=== PATIENT | male | born 1965 | race Caucasian/White ===

== ENCOUNTER 2017-10-05 14:03 | Observation (INO) | payer SELFPAY ==
--- NOTE | 2017-10-05 14:04 | PDOC ---
History of Present Illness - General History Source: Patient Exam Limitations: No Limitations - History of Present Illness Initial Comments: 10/05/17 15:14 The patient is a 52-year-old male, with a significant past medical history of Type I diabetes, who presents to the ED with chest pain that began today. The patient was at home watching TV when he developed the pain that he describes as tight in sensation with radiation to his back. He decided to report to the ED for further evaluation when his chest pain progressively worsened while he was out grocery shopping. He reports that he has been experiencing shortness of breath for the past few weeks and had a recent stress test done which was found to be abnormal. He has a nuclear test scheduled for tomorrow at [facility]. On exam, the patient states that he feels a little shaky. Pt takes 81 mg aspirin daily. The patient states that his stools have been black for a few days. He reports nausea but no vomiting. He denies any diaphoresis or palpitations. He denies any fever, chills, nausea, vomiting, diarrhea, or abdominal pain. PCP: Dr. Knox Senior Talent Acquisition Specialist: Dr. Friend Polisher Balance Screwhead: Dr. Ananda Strickland <Verena Carson - Last Filed: 10/05/17 16:30> <Dodie Hankins - Last Filed: 10/05/17 16:58> - General Chief Complaint: Chest Pain Stated Complaint: CHEST PAIN Time Seen by Provider: 10/05/17 14:04 Past History <Verena Carson - Last Filed: 10/05/17 16:30> <Dodie Hankins - Last Filed: 10/05/17 16:58> - Past Medical History Allergies/Adverse Reactions: Allergies Allergy/AdvReac Type Severity Reaction Status Date / Time No Known Allergies Allergy Verified 10/05/17 14:05 Home Medications: Ambulatory Orders Aspirin 81 mg PO DAILY 10/05/17 Insulin (Novolog) [Novolog Vial] 0 units SQ ASDIR 10/05/17 Methimazole 5 mg PO DAILY 10/05/17 Pravastatin Sodium 10 mg PO DAILY 10/05/17 Ramipril 5 mg PO DAILY 10/05/17 Review of Systems - Review of Systems Able to Perform ROS?: Yes Comments:: 10/05/17 15:17 GENERAL/CONSTITUTIONAL: (+)Shaking. No fever or chills. No weakness. HEAD, EYES, EARS, NOSE AND THROAT: No change in vision. No ear pain or discharge. No sore throat. CARDIOVASCULAR: (+)Chest pain, shortness of breath. RESPIRATORY: No cough, wheezing, or hemoptysis. GASTROINTESTINAL: (+)nausea. No vomiting, diarrhea or constipation. GENITOURINARY: (+)black stools. No dysuria, frequency, or change in urination. MUSCULOSKELETAL: No joint or muscle swelling or pain. No neck or back pain. SKIN: No rash NEUROLOGIC: No headache, vertigo, loss of consciousness, or change in strength/ sensation. ENDOCRINE: No increased thirst. No abnormal weight change. HEMATOLOGIC/LYMPHATIC: No anemia, easy bleeding, or history of blood clots. ALLERGIC/IMMUNOLOGIC: No hives or skin allergy. <Verena Carson - Last Filed: 10/05/17 16:30> *Physical Exam - Vital Signs Last Vital Signs Temp Pulse Resp BP Pulse Ox 98.2 F 91 H 18 121/81 97 10/05/17 14:04 10/05/17 15:12 10/05/17 15:12 10/05/17 15:12 10/05/17 15:12 - Physical Exam Comments: 10/05/17 15:20 GENERAL: Awake, alert, and fully oriented, in no acute distress HEAD: No signs of trauma EYES: PERRLA, EOMI, sclera anicteric, conjunctiva clear ENT: Auricles normal inspection, hearing grossly normal, nares patent, oropharynx clear without exudates. Moist mucosa NECK: Normal ROM, supple, no lymphadenopathy, JVD, or masses LUNGS: Breath sounds equal, clear to auscultation bilaterally. No wheezes, and no crackles HEART: Regular rate and rhythm, normal S1 and S2, no murmurs, rubs or gallops ABDOMEN: Soft, nontender, normoactive bowel sounds. No guarding, no rebound. No masses EXTREMITIES: Normal range of motion, no edema. No clubbing or cyanosis. No cords, erythema, or tenderness NEUROLOGICAL: Cranial nerves II through XII grossly intact. Normal speech, normal gait SKIN: Warm, Dry, normal turgor, no rashes or lesions noted Rectal Exam: No internal or external hemorrhoids. Light brown stool noted No masses palpated Normal prostate <AlliVerena - Last Filed: 10/05/17 16:30> Heart Score/ECG Review - ECG Intrepretation Comment:: 10/05/17 14:07 sinus at 90, nl axis, nl interval, no acute st/t wave findings <Dodie Hankins - Last Filed: 10/05/17 16:58> ED Treatment Course - LABORATORY CBC & Chemistry Diagram: 10/05/17 14:15 10/05/17 14:15 - ADDITIONAL ORDERS Additional order review: Laboratory Results 10/05/17 10/05/17 10/05/17 14:36 14:31 14:15 Sodium 137 Potassium 4.2 Chloride 107 Carbon Dioxide 22 Anion Gap 8 BUN 22 H Creatinine 1.3 Creat Clearance w eGFR 57.53 POC Glucometer [phone] Random Glucose 186 H Calcium 9.2 Magnesium 1.9 Total Bilirubin 1.3 H AST 23 ALT 21 Alkaline Phosphatase 65 Creatine Kinase 133 Troponin I < 0.03 L Total Protein 7.0 Albumin 4.0 Lipase 13 L 10/05/17 10/05/17 14:36 14:15 RBC 4.90 MCV 90.3 MCHC 34.0 RDW 12.2 MPV 10.1 Neutrophils % 65.1 Lymphocytes % 22.8 Monocytes % 7.1 Eosinophils % 3.3 Basophils % 1.7 POC Glucometer [phone] <AlliVerena - Last Filed: 10/05/17 16:30> - LABORATORY CBC & Chemistry Diagram: 10/05/17 14:15 10/05/17 14:15 <Dodie Hankins - Last Filed: 10/05/17 16:58> Medical Decision Making - Medical Decision Making 10/05/17 15:49 Dr. Yan was paged and notified via phone service. Case was discussed with Dr. Yan at 15:51. Dr. Yan states that he is unsure why the patient is scheduled for a nuclear test at [facility] tomorrow with Dr. Strickland. Dr. Carl is the Polisher Balance Screwhead who usually covers for Dr. Yan. Dr. Strickland is the Polisher Balance Screwhead at [facility] who will be performing the test. Dr Strickland's service was called at 15:55. We are awaiting on a call from Dr. [place] who is covering for Dr. Strickland. 10/05/17 16:30 Dr. Yan was paged once again for follow-up. <Verena Carson - Last Filed: 10/05/17 16:30> - Medical Decision Making 10/05/17 14:17 a/p: 52yo male with hx of DM with cp today -had outpt stress that was "abnl" and is shceduled for nuclear stress tomorrow at [facility] -cp today - tightness in chest -took ASA COPY READER -hx of DM -will check labs, ekg, cxr, trop -will discuss with PMD dr. Knox 10/05/17 15:07 re-eval: pt feeling better. No cp at this time. less anxious at this time rectal negative for heme, light brown stool 10/05/17 15:36 trop negative will call Dr. Knox and discuss case 10/05/17 15:[address] Yan who states if the patient needs to stay he should be admitted by the hospitalists service pt states appt tomorrow with DR. Strickland - call placed to dr. strickland 10/05/17 16:[address] Yan who recommends obs under [facility] here and then d /c for [facility] stress at [address] garcia who accepts pt to service. <Dodie Hankins - Last Filed: 10/05/17 16:58> *DC/Admit/Observation/Transfer - Attestations Scribe Attestion: 10/05/17 15:22 Documentation prepared by Verena Carson, acting as medical insurance coding specialist for Dodie Hankins DO, MD. <Verena Carson - Last Filed: 10/05/17 16:30> - Discharge Dispostion Admit: Yes - Attestations Physician Attestion: 10/05/17 16:58 I, Dr. Dodie Hankins DO, attest that this document has been prepared under my direction and personally reviewed by me in its entirety. I further attest, that it accurately reflects all work, treatment, procedures and medical decision -making performed by me. <Dodie Hankins - Last Filed: 10/05/17 16:58> Diagnosis at time of Disposition: Chest pain - Discharge Dispostion Condition at time of disposition: Fair - Referrals Referrals: Antonio Knox MD [Primary Care Provider] -
[2017-10-05 14:23] VITALS: BMI 25.4
[2017-10-05] MEDS ORDERED: HEMOQUE TEST 1 EACH EACH ONE (14:33)
[2017-10-05 14:43] LABS: BASO % 1.7 % (0-2.0); EOS % 3.3 % (0-4.5); MCH 30.7 pg (25.7-33.7); MEAN CELL VOLUME 90.3 fl (80-96); MEAN PLT VOLUME 10.1 fl (7.5-11.1); NEUT % 65.1 % (42.8-82.8); PLATELET COUNT 188 K/MM3 (134-434); RDW 12.2 % (11.9-15.9); WHITE BLOOD COUNT 7.9 K/mm3 (4.0-10.8)
[2017-10-05 14:53] LABS: ACTIVATED PTT 27.6 SECONDS (24.0-38.9)
[2017-10-05 14:56] LABS: CPK 133 IU/L (39-308)
[2017-10-05 14:56] LABS: ALK PHOS 65 U/L (32-92); ANION GAP 8 (8-16); BILIRUBIN,TOTAL 1.3 mg/dl (0.2-1.0); CALCIUM 9.2 mg/dl (8.4-10.2); CO2 22 mmol/L (22-28); CREATININE 1.3 mg/dl (0.6-1.3); GLUCOSE,RANDOM 186 mg/dl (74-106); MAGNESIUM 1.9 mg/dL (1.8-2.4); SGOT/AST 23 U/L (10-42); SGPT/ALT 21 U/L (10-40)
[2017-10-05 14:58] LABS: INR 1.06 (0.82-1.09); PROTHROMBIN TIME (PATIENT) 11.9 SEC (10.2-13.0)
[2017-10-05 15:13] LABS: TROPONIN I (DFP) < 0.03 ng/ml (0.03-0.50)
[2017-10-05 15:24] LABS: LYMPH # 1.8 # (8-40); MONO # 0.6 #; NEUT # 5.1 # (42.8-82.8)
[2017-10-05 15:25] LABS: BASO # 0.1 # (0.1-1); EOS # 0.3 #
[2017-10-05] MEDS ORDERED: ASPIRIN 81 MG CHEWABLE TABLETS PO ONE (16:36)
[2017-10-05] MEDS ORDERED: ASPIRIN 81 MG CHEWABLE TABLETS ONE (16:47)
[2017-10-05] MEDS ORDERED: ACETAMINOPHEN 325 MG TABLET (FP) PO PRN (16:59)
--- NOTE | 2017-10-05 21:20 | HP ---
CHIEF COMPLAINT: chest pain PCP: Lisette, Cardiology: Em [phone] HISTORY OF PRESENT ILLNESS: This is a 52 year old male with a past medical history of DM type 1 with diabetic retinopathy who presented to the ED with an episode of chest pain/ tightness which radiated to his back. The pain started while he was watching TV and he noticed it worsening when he was out shopping. Of note he has been experiencing SOB for the past few weeks and recently had an abnormal treadmill stress test. He is scheduled for a nuclear stress test in the morning. Upon exam he is feeling much better and has no further chest discomfort. ER course was notable for: (1) ECG with no acute changes (2) troponin neg Recent Travel: pt denies PAST MEDICAL HISTORY: Type 1 DM on insulin pump diabetic retinopathy PAST SURGICAL HISTORY: pt denies Social History: Smoking: quit a few months ago, reports he smoked 1/2-1ppd off and on for the past 15 years. Alcohol: 3 beers a few times a week Drugs: pt denies, former Marijuana Family History: mother alive and well father in his 70s, unknown sister with DM and heart stent Allergies No Known Allergies Allergy (Verified 10/05/17 14:05) HOME MEDICATIONS: 3 Medication Instructions Recorded Aspirin 81 mg PO DAILY 10/05/17 Insulin (Novolog) [Novolog Vial] 0 units SQ ASDIR 10/05/17 Methimazole 5 mg PO DAILY 10/05/17 Pravastatin Sodium 10 mg PO DAILY 10/05/17 Ramipril 5 mg PO DAILY 10/05/17 REVIEW OF SYSTEMS CONSTITUTIONAL: Absent: fever, chills, diaphoresis, generalized weakness, malaise, loss of appetite, weight change HEENT: Absent: rhinorrhea, nasal congestion, throat pain, throat swelling, difficulty swallowing, mouth swelling, ear pain, eye pain, visual changes CARDIOVASCULAR: Present: chest pain Absent: syncope, palpitations, irregular heart rate, lightheadedness, peripheral edema RESPIRATORY: Present: shortness of breath Absent: cough, dyspnea with exertion, orthopnea, wheezing, stridor, hemoptysis GASTROINTESTINAL: Absent: abdominal pain, abdominal distension, nausea, vomiting, diarrhea, constipation, melena, hematochezia GENITOURINARY: Absent: dysuria, frequency, urgency, hesitancy, hematuria, flank pain, genital pain MUSCULOSKELETAL: Absent: myalgia, arthralgia, joint swelling, back pain, neck pain SKIN: Absent: rash, itching, pallor HEMATOLOGIC/IMMUNOLOGIC: Absent: easy bleeding, easy bruising, lymphadenopathy, frequent infections ENDOCRINE: Absent: unexplained weight gain, unexplained weight loss, heat intolerance, cold intolerance NEUROLOGIC: Absent: headache, focal weakness or paresthesias, dizziness, unsteady gait, seizure, mental status changes, bladder or bowel incontinence PSYCHIATRIC: Absent: anxiety, depression, suicidal or homicidal ideation, hallucinations. PHYSICAL EXAMINATION Vital Signs - 24 hr 3 10/05/17 10/05/17 10/05/17 14:04 15:12 17:27 18:50 Temperature 98.2 F 97.8 F Pulse Rate 97 H 97 H Pulse Rate [ 91 H 85 Apical] Respiratory 16 18 18 18 Rate Blood Pressure 163/90 Blood Pressure 121/81 110/71 110/72 [Arm] O2 Sat by Pulse 98 97 98 Oximetry (%) GENERAL: Awake, alert, and fully oriented, in no acute distress. HEAD: Normal with no signs of trauma. EYES: Pupils equal, round and reactive to light, extraocular movements intact, sclera anicteric, conjunctiva clear. No lid lag. EARS, NOSE, THROAT: Ears normal, nares patent, oropharynx clear without exudates. Moist mucous membranes. NECK: Normal range of motion, supple without lymphadenopathy, JVD, or masses. LUNGS: Breath sounds equal, clear to auscultation bilaterally. No wheezes, and no crackles. No accessory muscle use. HEART: Regular rate and rhythm, normal S1 and S2 without murmur, rub or gallop. ABDOMEN: Soft, nontender, not distended, normoactive bowel sounds, no guarding, no rebound, no masses. No hepatomegaly or splenomegaly. MUSCULOSKELETAL: Normal range of motion at all joints. No bony deformities or tenderness. No CVA tenderness. UPPER EXTREMITIES: 2+ pulses, warm, well-perfused. No cyanosis. No clubbing. No peripheral edema. LOWER EXTREMITIES: 2+ pulses, warm, well-perfused. No calf tenderness. No peripheral edema. NEUROLOGICAL: Cranial nerves II-XII intact. Normal speech. Normal gait. PSYCHIATRIC: Cooperative. Good eye contact. Appropriate mood and affect. SKIN: Warm, dry, normal turgor, no rashes or lesions noted, normal capillary refill. Laboratory Results - last 24 hr 3 10/05/17 10/05/17 10/05/17 10/05/17 14:15 14:15 14:31 14:36 WBC 7.9 RBC 4.90 Hgb 15.0 Hct 44.2 MCV 90.3 MCH 30.7 MCHC 34.0 RDW 12.2 Plt Count 188 MPV 10.1 Neutrophils % 65.1 Lymphocytes % 22.8 Monocytes % 7.1 Eosinophils % 3.3 Basophils % 1.7 PT with INR 11.9 INR 1.06 PTT (Actin FS) 27.6 Sodium 137 Potassium 4.2 Chloride 107 Carbon Dioxide 22 Anion Gap 8 BUN 22 H Creatinine 1.3 Creat Clearance w eGFR 57.53 POC Glucometer [phone] Random Glucose 186 H Calcium 9.2 Magnesium 1.9 Total Bilirubin 1.3 H AST 23 ALT 21 Alkaline Phosphatase 65 Creatine Kinase 133 Troponin I < 0.03 L Total Protein 7.0 Albumin 4.0 Lipase 13 L ECG Normal sinus rhythm vent rate 90, QTC 442 CXR No acute chest pathology ASSESSMENT/PLAN: 52yM with PMH DM1 presented to the ED with chest tightness today and SOB for the past few weeks with abnormal treadmill stress test recently. Chest pain - trend troponins, neg x 1 - eCG WNL - monitor on tele - ED dw PCP who recommended admit to us for overnight and DC in am to go for stress test if all ok Diabetes - BGM AC/HS, cont insulin pump with bolus as indicated by protocol DVT PPX - chemoprophylaxis deferred as expected LOS <48h FEN - pt tolerating po, NPO in am for stress test Dispo: Pt currently requires cardiac monitoring for management of his emergent condition.
[2017-10-05 21:27] LABS: CPK 110 IU/L (39-308)
[2017-10-05 21:36] LABS: TROPONIN I (DFP) < 0.03 ng/ml (0.03-0.50)
[2017-10-06 06:11] VITALS: BP 127/70; PULSE 80; TEMP 97.6
--- NOTE | 2017-10-06 07:43 | DS ---
Physical Exam: SUBJECTIVE: Patient seen and examined, denies any chest pain or shortness of breath, patient has a scheduled stress test at [facility] at 1015am. OBJECTIVE:This is a 52 year old male with a past medical history of DM type 1 with diabetic retinopathy who presented to the ED with an episode of chest pain/ tightness which radiated to his back. The pain started while he was watching TV and he noticed it worsening throughout the day while he was shopping. Of note he has been experiencing SOB for the past few weeks and recently had an abnormal treadmill stress test. He is scheduled for a nuclear stress test in the morning. Upon exam he is feeling much better and has no further chest discomfort. ER course was notable for: (1) ECG with no acute changes (2) troponin neg Vital Signs Period Temp Pulse Resp BP Sys/Crocker Pulse Ox Last 24 Hr 97.6 F-98.3 F 72-97 16-18 108-163/64-90 95-100 PHYSICAL EXAM GENERAL: The patient is awake, alert, and fully oriented, in no acute distress. HEAD: Normal with no signs of trauma. EYES: PERRL, extraocular movements intact, sclera anicteric, conjunctiva clear. ENT: Ears normal, nares patent, oropharynx clear without exudates, moist mucous membranes. NECK: Trachea midline, full range of motion, supple. LUNGS: Breath sounds equal, clear to auscultation bilaterally, no wheezes, no crackles, no accessory muscle use. HEART: Regular rate and rhythm, S1, S2 without murmur, rub or gallop. ABDOMEN: Soft, nontender, nondistended, normoactive bowel sounds, no guarding, no rebound, no hepatosplenomegaly, no masses. EXTREMITIES: 2+ pulses, warm, well-perfused, no edema. NEUROLOGICAL: Cranial nerves II through XII grossly intact. Normal speech, gait not observed. PSYCH: Normal mood, normal affect. SKIN: Warm, dry, normal turgor, no rashes or lesions noted. LABS Laboratory Results - last 24 hr 10/05/17 10/05/17 10/05/17 14:15 14:15 14:31 WBC 7.9 RBC 4.90 Hgb 15.0 Hct 44.2 MCV 90.3 MCH 30.7 MCHC 34.0 RDW 12.2 Plt Count 188 MPV 10.1 Neutrophils % 65.1 Lymphocytes % 22.8 Monocytes % 7.1 Eosinophils % 3.3 Basophils % 1.7 PT with INR 11.9 INR 1.06 PTT (Actin FS) 27.6 Sodium 137 Potassium 4.2 Chloride 107 Carbon Dioxide 22 Anion Gap 8 BUN 22 H Creatinine 1.3 Creat Clearance w eGFR 57.53 POC Glucometer Random Glucose 186 H Calcium 9.2 Magnesium 1.9 Total Bilirubin 1.3 H AST 23 ALT 21 Alkaline Phosphatase 65 Creatine Kinase Troponin I Total Protein 7.0 Albumin 4.0 Lipase 13 L 10/05/17 10/05/17 10/05/17 14:31 14:36 20:30 WBC RBC Hgb Hct MCV MCH MCHC RDW Plt Count MPV Neutrophils % Lymphocytes % Monocytes % Eosinophils % Basophils % PT with INR INR PTT (Actin FS) Sodium Potassium Chloride Carbon Dioxide Anion Gap BUN Creatinine Creat Clearance w eGFR POC Glucometer [id number] Random Glucose Calcium Magnesium Total Bilirubin AST ALT Alkaline Phosphatase Creatine Kinase 133 110 Troponin I < 0.03 L < 0.03 L Total Protein Albumin Lipase IMAGING EKG nsr normal axis chest xray no acute pathology HOSPITAL COURSE: Patient was admitted from the emergency department for chest pain r/o acs, troponin x 3 wnl, no events was noted on 24 hour cardiac monitoring. Blood pressure remained at goal throughout admission. Patient has a past medical history of IDDM, on insulin pump which was continued with bolus as needed. PLAN - patient discharged to the care of his sister, discharge to outpatient stress testing at [facility] - continue all medications as prescribed Date of Admission:10/05/17 Date of Discharge: 10/06/17 Minutes to complete discharge: 45 Discharge Summary Reason For Visit: CHEST PAIN Current Active Problems Chest pain (Acute) Condition: Improved - Instructions Diet, Activity, Other Instructions: resume all medications as prescribed please follow up at [facility] for your stress test that is scheduled for today at 10am if any new or persistent symptoms develop please return to the emergency department. Referrals: Antonio Knox MD [Primary Care Provider] - Disposition: HOME - Home Medications Comprehensive Discharge Medication List: Ambulatory Orders Aspirin 81 mg PO DAILY 10/05/17 Insulin (Novolog) [Novolog Vial] 0 units SQ ASDIR 10/05/17 Methimazole 5 mg PO DAILY 10/05/17 Pravastatin Sodium 10 mg PO DAILY 10/05/17 Ramipril 5 mg PO DAILY 10/05/17 This patient is new to me today: Yes Date on this admission: 10/06/17 Emergency Visit: Yes ED Registration Date: 10/05/17 Care time: The patient presented to the Emergency Department on the above date and was hospitalized for further evaluation of their emergent condition. Critical Care patient: No - Discharge Referral Referred to [facility] Med [facility].: No
[2017-10-06 08:12] LABS: BASO % 0.7 % (0-2.0); EOS % 3.2 % (0-4.5); MCH 30.4 pg (25.7-33.7); MCHC 33.3 g/dl (32.0-35.9); MEAN CELL VOLUME 91.2 fl (80-96); MEAN PLT VOLUME 10.8 fl (7.5-11.1); NEUT % 70.8 % (42.8-82.8); PLATELET COUNT 183 K/MM3 (134-434); RDW 12.2 % (11.9-15.9); WHITE BLOOD COUNT 8.5 K/mm3 (4.0-10.8)
[2017-10-06 08:33] LABS: ANION GAP 6 (8-16); CALCIUM 9.1 mg/dl (8.4-10.2); CO2 26 mmol/L (22-28); CREATININE 1.2 mg/dl (0.6-1.3); GLUCOSE,RANDOM 247 mg/dl (74-106)
[2017-10-06 08:38] LABS: CPK 99 IU/L (39-308)
[2017-10-06 08:56] LABS: TROPONIN I (DFP) < 0.03 ng/ml (0.03-0.50)
[2017-10-06] MEDS ORDERED: ASPIRIN 81 MG CHEWABLE TABLETS PO SCH (10:00)
[2017-10-06] MEDS ORDERED: FAMOTIDINE 20 MG TABLET PO SCH (10:00)
--- NOTE | 2017-10-06 13:03 | EKG ---
Test Reason : Blood Pressure : / mmHG Vent. Rate : 090 BPM Atrial Rate : 090 BPM P-R Int : 152 ms QRS Dur : 088 ms QT Int : 362 ms P-R-T Axes : 059 061 061 degrees QTc Int : 442 ms NORMAL SINUS RHYTHM NORMAL ECG WHEN COMPARED WITH ECG OF 14-SEP-2004 09:28, NONSPECIFIC T WAVE ABNORMALITY NO LONGER EVIDENT IN INFERIOR LEADS Confirmed by MD Gera, Cornelius ([id number]) on 10/06/2017 1:02:40 PM Referred By: Devorah Hewitt Confirmed By:Cornelius Boss MD
== END 2017-10-06 09:00 | disposition home or self-care (01) ==
LOC: SUPCPDRO 14:03 → FER 14:03 → FM/S 18:09
PROVIDERS: ADMIT Internal Medicine; ATTEND Nurse Practitioner Family
DX: R07.9 Chest pain, unspecified (principal); E10.9 Type 1 diabetes mellitus without complications; Z96.41 Presence of insulin pump (external) (internal); Z79.4 Long term (current) use of insulin; Z79.82 Long term (current) use of aspirin
CPT/HCPCS: 36415; 71010-TC; 80048; 80053; 82550; 83690; 83735; 84484; 85025; 85610; 85730; 93005; 99285-25; G0378

== ENCOUNTER 2019-11-18 11:08 | Emergency (ER) | payer OTHER ==
--- NOTE | 2019-11-18 11:11 | PDOC ---
History of Present Illness - General Chief Complaint: Blood Pressure Problem Stated Complaint: BLOOD PRESSURE CHECK Time Seen by Provider: 11/18/19 11:10 History Source: Patient Exam Limitations: No Limitations - History of Present Illness Initial Comments: 11/18/19 11:10 54y M with PMH of HTN, HLD, T1DM presenting to ED with elevated BP. Pt states he had a salty soup yesterday for dinner. At work, he checked his blood pressure and was told it was 190s/100s. He checked it one hour later and it was about the same. He was advised to go to the ER to be checked out. Pt states that in the morning he felt stiffness in the R arm which is subsiding now. Denies chest pain, sob, headache, changes in vision, recent illnesses, abdominal pain, n/v/d. He takes ramipril for bp and took it this AM at 0730. He has a new pmd and has an appointment this coming Thursday. PMD: PMH: see hpi PSH: Meds: see med rec Allergies: nkda Social: denies Past History - Past Medical History Allergies/Adverse Reactions: Allergies Allergy/AdvReac Type Severity Reaction Status Date / Time No Known Allergies Allergy Verified 11/18/19 11:10 Home Medications: Ambulatory Orders Aspirin 81 mg PO DAILY 10/05/17 Insulin (Novolog) [Novolog -] 0 units SQ ASDIR 10/05/17 Methimazole 5 mg PO DAILY 10/05/17 Pravastatin Sodium 10 mg PO DAILY 10/05/17 Ramipril 5 mg PO DAILY 10/05/17 Famotidine [Pepcid -] 20 mg PO BID tablet 10/06/17 Anemia: No Asthma: No Cancer: No Cardiac Disorders: No CVA: No COPD: No Dementia: No Diabetes: Yes (type 1,on insulin pump) GI Disorders: No HTN: Yes Hypercholesterolemia: Yes Liver Disease: No Seizures: No Thyroid Disease: Yes (graves disease) - Surgical History Abdominal Surgery: No Appendectomy: No Cardiac Surgery: No Cholecystectomy: No Lung Surgery: No Neurologic Surgery: No Orthopedic Surgery: No - Psycho Social/Smoking Cessation Hx Smoking History: Former smoker Have you smoked in the past 12 months: Yes If you are a former smoker, when did you quit?: a few months ago Hx Alcohol Use: No Drug/Substance Use Hx: No Substance Use Type: None Hx Substance Use Treatment: No Review of Systems - Review of Systems Constitutional: No: Symptoms Reported HEENTM: No: Symptoms Reported Respiratory: No: Symptoms reported Cardiac (ROS): No: Symptoms Reported ABD/GI: No: Symptoms Reported : No: Symptoms Reported Musculoskeletal: No: Symptoms Reported Integumentary: No: Symptoms Reported Neurological: No: Symptoms reported *Physical Exam - Physical Exam General Appearance: Yes: Nourished, Appropriately Dressed. No: Apparent Distress HEENT: positive: EOMI, FLAQUITA, Normal ENT Inspection Neck: positive: Trachea midline, Supple Respiratory/Chest: positive: Lungs Clear, Normal Breath Sounds. negative: Crackles, Rales, Rhonchi, Stridor, Wheezing Cardiovascular: positive: Regular Rhythm, Regular Rate, S1, S2. negative: Edema , JVD, Murmur Vascular Pulses: Dorsalis-Pedis (R): 2+, Doralis-Pedis (L): 2+ Gastrointestinal/Abdominal: positive: Normal Bowel Sounds, Soft Musculoskeletal: positive: Vertebral Tenderness. negative: CVA Tenderness Extremity: negative: Pedal Edema, Swelling Integumentary: positive: Normal Color, Dry, Warm Neurologic: positive: wax pattern assembler II-XII NML intact, Fully Oriented, Alert, Normal Mood/ Affect, Normal Response, Motor Strength 5/5 Medical Decision Making - Medical Decision Making 11/18/19 11:52 asymptomatic at this time. no cp, no sob, no leg swelling. likely 2/2 diet. pmd appointment in 5 days. will advise to continue to take meds, avoid triggers (coffee, stimulants, salty diet). ekg: nsr at 89 bpm. no amanda or depressions, normal axis. dispo: home Discharge - Discharge Information Problems reviewed: Yes Clinical Impression/Diagnosis: Hypertension Qualifiers: Hypertension type: unspecified Qualified Code(s): I10 - Essential (primary) hypertension Condition: Good Disposition: HOME - Admission No - Follow up/Referral - Patient Discharge Instructions Patient Printed Discharge Instructions: DI for High Blood Pressure Additional Instructions: Please avoid any triggers for high blood pressure (salty foods, coffee, certain decongestants). Keep your appointment for your PMD and discuss this ED visit. Come back to the emergency room if you have chest pain, have changes in your vision, feel short of breath, or if any new or concerning symptom develops. Thank you - Post Discharge Activity
[2019-11-18 11:30] VITALS: BP 189/96; PULSE 90; TEMP 98.3; BMI 25.8
--- NOTE | 2019-11-18 11:46 | PDOC ---
Attending Attestation - Resident Resident Name: Angelina Rivera - ED Attending Attestation I have performed the following: I have examined & evaluated the patient, The case was reviewed & discussed with the resident, I agree w/resident's findings & plan - HPI HPI: 11/18/19 11:44 54y M with PMH of HTN, HLD, T1DM presenting to ED with elevated BP, at home SBP 190s. He takes ramipril HTN and took it this AM. no cp or sob, no headache or dizziness no recent illnesses no visual or hearing changes. has new pmd appt coming up next week. +salty soup last night was his last intake. 11/18/19 11:49 - Physicial Exam PE: 11/18/19 11:45 Agree with the resident's HPI and PE as documented in the electronic medical record. NAD, well appearing, alert and awake. EOMI, PERRL, nl conjunctiva, anicteric; neck supple. lungs clear, no respiratory distress. RRR, abdomen soft nontender. no rebound, guarding. Back nontender. PAGE x4, no focal neuro deficits. No peripheral edema. normal color for ethnicity, WWP. speech clear. no calf swelling or tenderness. 11/18/19 12:02 - Medical Decision Making 11/18/19 11:45 Vital Signs Temp Pulse Resp BP Pulse Ox 98.3 F 90 16 189/96 H 100 11/18/19 11:09 11/18/19 11:09 11/18/19 11:09 11/18/19 11:09 11/18/19 11:09 Vital signs notable for no fever, hypertensive 189/96, pulse ox is 100%, no respiratory distress, no tachycardia, heart rate 90. likely HTN related to salty food intake. asymptomatic at this time, no concerning sx to suggest neuro/cardiovascular pathology/etiology no indication to treat at this time. ECG is sinus rhythm, normal intervals, no ST elevations or depressions, normal T wave morphology as documented, close follow up with primary doctor, DC stable condition. clinical recheck of BP and medication changes as needed told to avoid salty food intake that could be trigger for elevated bp 11/18/19 11:50 11/18/19 12:02 Heart Score/ECG Review #1 ECG reviewed & interpreted by me at: 11:35 General ECG Interpretation: Sinus Rhythm, Normal Rate, Normal Intervals 11/18/19 11:46 EKG normal sinus rhythm 89 bpm, no interval abnormalities, narrow QRS, ST and T wave segments and morphology normal
--- NOTE | 2019-11-19 14:36 | EKG ---
Test Reason : Blood Pressure : / mmHG Vent. Rate : 089 BPM Atrial Rate : 089 BPM P-R Int : 150 ms QRS Dur : 084 ms QT Int : 368 ms P-R-T Axes : 049 051 045 degrees QTc Int : 447 ms NORMAL SINUS RHYTHM NORMAL ECG Confirmed by MD MOYA GREGORY ([id number]) on 11/19/2019 2:35:54 PM Referred By: Confirmed By:EDWARD MOYA MD
== END 2019-11-18 12:19 | disposition home or self-care (01) ==
LOC: FER 11:08
DX: I10 Essential (primary) hypertension (principal); Z87.891 Personal history of nicotine dependence; E07.9 Disorder of thyroid, unspecified; E78.00 Pure hypercholesterolemia, unspecified; E10.9 Type 1 diabetes mellitus without complications; Z96.41 Presence of insulin pump (external) (internal)
CPT/HCPCS: 93005; 99281-25